=== PATIENT | male | born 1955 | race American Indian/Alaskan Native ===

== ENCOUNTER 2018-10-02 21:12 | Inpatient (IN) | payer MEDICAID, MEDICARE, OTHER ==
[2018-10-02] MEDS ORDERED: ATROVENT IH ONE (21:53)
[2018-10-02] MEDS ORDERED: SOLU-Medrol IV ONE (21:53)
[2018-10-02] MEDS ORDERED: PROVENTIL IH ONE (21:53)
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
[2018-10-02 22:33] LABS: Basophils # (Auto) 0.1 K/mm3 (0.0-0.1); Basophils % (Auto) 0.8 % (0.0-1.8); Eosinophils # (Auto) 0.1 K/mm3 (0.0-0.4); Eosinophils % (Auto) 1.5 % (0.0-4.3); Hematocrit 46.8 % (35.5-45.6); Hemoglobin 16.1 gm/dl (11.8-15.2); Lymphocytes # (Auto) 2.6 K/mm3 (1.2-5.4); Lymphocytes % (Auto) 35.9 % (13.4-35.0); Mean Corpuscular HGB Conc 35 % (32-34); Mean Corpuscular Volume 96 fl (84-94); Monocytes # (Auto) 0.3 K/mm3 (0.0-0.8); Monocytes % (Auto) 4.4 % (0.0-7.3); Platelet Count 294 K/mm3 (140-440); Red Blood Count 4.86 M/mm3 (3.65-5.03); Red Cell Distribution Width 13.5 % (13.2-15.2)
--- NOTE | 2018-10-02 22:33 | XRay Report ---
FINAL REPORT EXAM: XR CHEST 1V AP HISTORY: chest pain, cough TECHNIQUE: upright single view chest PRIORS: None. FINDINGS: Cardiac and mediastinal contours are unremarkable. No focal pulmonary infiltrate is identified. No pleural fluid collection seen. Pulmonary vasculature is unremarkable. IMPRESSION: Negative single-view chest
[2018-10-02 22:43] LABS: INR 0.98 (0.87-1.13)
[2018-10-02 22:44] LABS: Partial Thromboplastin Time 26.5 Sec. (24.2-36.6)
[2018-10-02 22:49] LABS: BUN/Creatinine Ratio 12; Blood Urea Nitrogen 11 mg/dL (9-20); Calcium 8.9 mg/dL (8.4-10.2); Hemolysis Index 12
[2018-10-02] MEDS ORDERED: NACL 0.9% 500 ML 500 ML IV ONE (23:17)
[2018-10-03] MEDS ORDERED: NACL 0.9% 1000 ML 1,000 ML IV ONE (00:58)
[2018-10-03] MEDS ORDERED: NACL 0.9% 1000 ML 1,000 ML ONE (01:02)
[2018-10-03] MEDS ORDERED: ASPIRIN PO ONE (02:28)
[2018-10-03] MEDS ORDERED: ZOFRAN IV PRN ×2 (02:50→06:30)
[2018-10-03] MEDS ORDERED: TYLENOL PO PRN (02:50)
[2018-10-03] MEDS ORDERED: MORPHINE IV PRN (02:50)
[2018-10-03] MEDS ORDERED: SODIUM CHLORIDE FLUSH SYRINGE 10 ML IV PRN ×2 (02:50)
[2018-10-03] MEDS ORDERED: NITROSTAT SL PRN (02:55)
--- NOTE | 2018-10-03 03:03 | History and Physical Report ---
<VICTOR HUGO LANG - Last Filed: 10/03/18 05:53> History of Present Illness Date of examination: 10/03/18 Date of admission: 10/03/1919 Chief complaint: Chest pain and hypotension History of present illness: Patient 63-year-old male with history of COPD , cigarette smoking disorder, hypotension who presents to the ER with complaints of chest pain for 3 days. Patient states that he has been coughing on and off for 2 weeks, it is a prod uctive cough that is worse in the morning, the cough is now associated with chest pain. Patient reports that the chest pain is located in the left substernal area, radiating to his left hand, he states that he experiences numbness and tingling and bluish discoloration of his left hand. Patient states that the left hand numbness worsen when ist cold. Patient also reports a history of tobacco use for several years he currently smokes about 12 cigarettes a day. Patient also reports a left-sided headache, denies visual changes, denies shortness of breath, denies diaphoresis, denies nausea or vomiting, denies fever, denies chills. Patient reports episodes of diarrhea/vomiting on and off for several months. Patient states the diarrhea has been ongoing for several months with no change. In the ER patient had a chest x-ray that was normal, his blood pressure is 74/39, improved to 96/55. Pt's EKG was normal, cardiac enzymes were negative. Patient is admitted for COPD exacerbation, chest pain and hypotension. Medications and Allergies Allergies Allergy/AdvReac Type Severity Reaction Status Date / Time No Known Allergies Allergy Verified 08/25/13 11:20 Home Medications Medication Instructions Recorded Confirmed Last Taken Type Fluticasone/Salmeterol [Advair 1 each IH BID #1 blst.w.dev 10/05/18 Unknown Rx 250-50 Diskus] Prednisone [predniSONE 10 mg 10 mg PO .TAPER #1 tab.ds.pk 10/05/18 Unknown Rx (6-Day Pack, 21 Tabs)] RX: ALBUTEROL Inhaler(NF) 2 puff IH QID PRN #1 inha 10/05/18 Unknown Rx [VENTOLIN Inhaler(NF)] RX: Famotidine [Pepcid] 20 mg PO BID #30 tablet 10/05/18 Unknown Rx RX: Nicotine [Habitrol] 14 mg TD DAILY #30 patch 10/05/18 Unknown Rx RX: levoFLOXacin [Levaquin TAB] 750 mg PO Q24HR@2200 #5 tablet 10/05/18 Unknown Rx Active Meds: Active Medications Acetaminophen (Tylenol) 650 mg PO Q4H PRN PRN Reason: Pain MILD(1-3)/Fever >100.5/RUIZ Aspirin (Ecotrin) 325 mg PO QDAY BRE Morphine Sulfate (Morphine) 2 mg IV Q4H PRN PRN Reason: Pain, Moderate (4-6) Ondansetron HCl (Zofran) 4 mg IV Q8H PRN PRN Reason: Nausea And Vomiting Sodium Chloride (Sodium Chloride Flush Syringe 10 Ml) 10 ml IV BID BRE Sodium Chloride (Sodium Chloride Flush Syringe 10 Ml) 10 ml IV PRN PRN PRN Reason: LINE FLUSH Sodium Chloride (Sodium Chloride Flush Syringe 10 Ml) 10 ml IV PRN PRN PRN Reason: LINE FLUSH Exam - Constitutional Vitals: Temp Pulse Resp BP Pulse Ox 98.7 F 77 17 106/62 95 10/02/18 21:50 10/03/18 02:00 10/03/18 02:00 10/03/18 02:00 10/03/18 02:00 General appearance: Present: no acute distress - EENT Eyes: Present: PERRL, EOM intact ENT: hearing intact, clear oral mucosa - Neck Neck: Present: supple, normal ROM - Respiratory Respiratory effort: normal Respiratory: bilateral: diminished - Cardiovascular Rhythm: regular Heart Sounds: Present: gallop - Extremities Extremities: no ischemia Peripheral Pulses: within normal limits - Abdominal General gastrointestinal: Present: soft, non-tender Male genitourinary: Present: deferred - Rectal Rectal Exam: deferred - Integumentary Integumentary: Present: warm, dry - Musculoskeletal Musculoskeletal: strength equal bilaterally - Psychiatric Psychiatric: appropriate mood/affect, cooperative - Neurologic Neurologic: moves all extremities Results - Labs CBC & Chem 7: 10/03/18 03:20 10/03/18 03:20 Labs: Laboratory Last Values WBC 7.1 K/mm3 (4.5-11.0) 10/02/18 22:07 RBC 4.86 M/mm3 (3.65-5.03) 10/02/18 22:07 Hgb 16.1 gm/dl (11.8-15.2) H 10/02/18 22:07 Hct 46.8 % (35.5-45.6) H 10/02/18 22:07 MCV 96 fl (84-94) H 10/02/18 22:07 MCH 33 pg (28-32) H 10/02/18 22:07 MCHC 35 % (32-34) H 10/02/18 22:07 RDW 13.5 % (13.2-15.2) 10/02/18 22:07 Plt Count 294 K/mm3 (140-440) 10/02/18 22:07 Lymph % (Auto) 35.9 % (13.4-35.0) H 10/02/18 22:07 [place] % (Auto) 4.4 % (0.0-7.3) 10/02/18 22:07 Eos % (Auto) 1.5 % (0.0-4.3) 10/02/18 22:07 Baso % (Auto) 0.8 % (0.0-1.8) 10/02/18 22:07 Lymph # 2.6 K/mm3 (1.2-5.4) 10/02/18 22:07 [place] # 0.3 K/mm3 (0.0-0.8) 10/02/18 22:07 Eos # 0.1 K/mm3 (0.0-0.4) 10/02/18 22:07 Baso # 0.1 K/mm3 (0.0-0.1) 10/02/18 22:07 Seg Neutrophils % 57.4 % (40.0-70.0) 10/02/18 22:07 Seg Neutrophils # 4.1 K/mm3 (1.8-7.7) 10/02/18 22:07 PT 13.4 Sec. (12.2-14.9) 10/02/18 22:07 INR 0.98 (0.87-1.13) 10/02/18 22:07 APTT 26.5 Sec. (24.2-36.6) 10/02/18 22:07 D-Dimer 196.69 ng/mlDDU (0-234) 10/02/18 22:07 Sodium 141 mmol/L (137-145) 10/02/18 22:07 Potassium 4.1 mmol/L (3.6-5.0) 10/02/18 22:07 Chloride 103.9 mmol/L (98-107) 10/02/18 22:07 Carbon Dioxide 20 mmol/L (22-30) L 10/02/18 22:07 Anion Gap 21 mmol/L 10/02/18 22:07 BUN 11 mg/dL (9-20) 10/02/18 22:07 Creatinine 0.9 mg/dL (0.8-1.5) 10/02/18 22:07 Estimated GFR > 60 ml/min 10/02/18 22:07 BUN/Creatinine Ratio 12 % 10/02/18 22:07 Glucose 91 mg/dL (75-100) 10/02/18 22:07 Lactic Acid 4.20 mmol/L (0.7-2.0) H* 10/03/18 02:04 Calcium 8.9 mg/dL (8.4-10.2) 10/02/18 22:07 Troponin T < 0.010 ng/mL (0.00-0.029) 10/03/18 02:04 NT-Pro-B Natriuret Pep 2388 pg/mL (0-900) H 10/02/18 22:07 Assessment and Plan Assessment and plan: 1. Atypical chest pain, rule out ACS 2. Hypotension 3. COPD exacerbation 4. Cigarette smoking disorder 5. Chronic diarrhea etiology unclear Plan: Patient is admitted for chest pain/ Continue cardiac enzymes every 6 hours 2 Monitor telemetry /vital signs Smoking cessation Monitor BP Stress test in a.m. COPD exacerbation protocol Solu-Medrol IV 60 mg every 6 hours Patient has no home meds Plan discussed with patient, voiced understanding Patient's condition and plan of care discussed with Dr. Cabrera Advance Directives: Yes VTE prophylaxis?: Chemical Plan of care discussed with patient/family: Yes <YEVGENIY CABRERA - Last Filed: 10/13/18 06:47> History of Present Illness Date of admission: 10/03/18 04:15 Medications and Allergies Active Meds: Active Medications Acetaminophen (Tylenol) 650 mg PO Q4H PRN PRN Reason: Pain MILD(1-3)/Fever >100.5/RIUZ Aspirin (Ecotrin) 325 mg PO QDAY BRE Famotidine (Pepcid) 20 mg IV BID BRE Last Admin: 10/03/18 04:41 Dose: 20 mg Documented by: Sodium Chloride (Nacl 0.9% 1000 Ml) 1,000 mls @ 125 mls/hr IV DIRECT BRE Last Admin: 10/03/18 04:25 Dose: 125 mls/hr Documented by: Piperacillin Sod/Tazobactam Sod (Zosyn/Ns 4.5gm/100ml) 4.5 gm in 100 mls @ 200 mls/hr IV Q8H BRE; Protocol Last Admin: 10/03/18 04:25 Dose: 200 mls/hr Documented by: Morphine Sulfate (Morphine) 2 mg IV Q4H PRN PRN Reason: Pain, Moderate (4-6) Ondansetron HCl (Zofran) 4 mg IV Q8H PRN PRN Reason: Nausea And Vomiting Sodium Chloride (Sodium Chloride Flush Syringe 10 Ml) 10 ml IV BID BRE Sodium Chloride (Sodium Chloride Flush Syringe 10 Ml) 10 ml IV PRN PRN PRN Reason: LINE FLUSH Sodium Chloride (Sodium Chloride Flush Syringe 10 Ml) 10 ml IV PRN PRN PRN Reason: LINE FLUSH Exam - Constitutional Vitals: Temp Pulse Resp BP Pulse Ox 98.7 F 81 16 119/64 97 10/02/18 21:50 10/03/18 06:00 10/03/18 06:00 10/03/18 06:00 10/03/18 06:00 Results - Labs CBC & Chem 7: 10/03/18 03:20 10/03/18 03:20 Labs: Laboratory Last Values WBC 6.4 K/mm3 (4.5-11.0) 10/03/18 03:20 RBC 4.69 M/mm3 (3.65-5.03) 10/03/18 03:20 Hgb 15.0 gm/dl (11.8-15.2) 10/03/18 03:20 Hct 45.3 % (35.5-45.6) 10/03/18 03:20 MCV 97 fl (84-94) H 10/03/18 03:20 MCH 32 pg (28-32) 10/03/18 03:20 MCHC 33 % (32-34) 10/03/18 03:20 RDW 13.6 % (13.2-15.2) 10/03/18 03:20 Plt Count 261 K/mm3 (140-440) 10/03/18 03:20 Lymph % (Auto) 9.4 % (13.4-35.0) L 10/03/18 03:20 [place] % (Auto) 1.0 % (0.0-7.3) 10/03/18 03:20 Eos % (Auto) 0.1 % (0.0-4.3) 10/03/18 03:20 Baso % (Auto) 0.3 % (0.0-1.8) 10/03/18 03:20 Lymph # 0.6 K/mm3 (1.2-5.4) L 10/03/18 03:20 [place] # 0.1 K/mm3 (0.0-0.8) 10/03/18 03:20 Eos # 0.0 K/mm3 (0.0-0.4) 10/03/18 03:20 Baso # 0.0 K/mm3 (0.0-0.1) 10/03/18 03:20 Seg Neutrophils % 89.2 % (40.0-70.0) H 10/03/18 03:20 Seg Neutrophils # 5.7 K/mm3 (1.8-7.7) 10/03/18 03:20 PT 13.4 Sec. (12.2-14.9) 10/02/18 22:07 INR 0.98 (0.87-1.13) 10/02/18 22:07 APTT 26.5 Sec. (24.2-36.6) 10/02/18 22:07 D-Dimer 196.69 ng/mlDDU (0-234) 10/02/18 22:07 Sodium 141 mmol/L (137-145) 10/03/18 03:20 Potassium 4.3 mmol/L (3.6-5.0) 10/03/18 03:20 Chloride 105.7 mmol/L (98-107) 10/03/18 03:20 Carbon Dioxide 21 mmol/L (22-30) L 10/03/18 03:20 Anion Gap 19 mmol/L 10/03/18 03:20 BUN 12 mg/dL (9-20) 10/03/18 03:20 Creatinine 0.9 mg/dL (0.8-1.5) 10/03/18 03:20 Estimated GFR > 60 ml/min 10/03/18 03:20 BUN/Creatinine Ratio 13 % 10/03/18 03:20 Glucose 112 mg/dL (75-100) H 10/03/18 03:20 Hemoglobin A1c 5.6 % (4-6) 10/03/18 03:20 Lactic Acid 4.50 mmol/L (0.7-2.0) H* 10/03/18 03:20 Calcium 7.9 mg/dL (8.4-10.2) L 10/03/18 03:20 Troponin T < 0.010 ng/mL (0.00-0.029) 10/03/18 02:04 NT-Pro-B Natriuret Pep 2388 pg/mL (0-900) H 10/02/18 22:07 Triglycerides 217 mg/dL (2-149) H 10/03/18 03:20 Cholesterol 119 mg/dL (50-199) 10/03/18 03:20 LDL Cholesterol Direct 49 mg/dL (50-130) L 10/03/18 03:20 HDL Cholesterol 48 mg/dL (40-59) 10/03/18 03:20 Cholesterol/HDL Ratio 2.47 % 10/03/18 03:20 Urine Color Yellow (Yellow) 10/03/18 04:23 Urine Turbidity Clear (Clear) 10/03/18 04:23 Urine pH 5.0 (5.0-7.0) 10/03/18 04:23 Ur Specific [place] 1.008 (1.003-1.030) 10/03/18 04:23 Urine Protein <15 mg/dl mg/dL (Negative) 10/03/18 04:23 Urine Glucose (UA) Neg mg/dL (Negative) 10/03/18 04:23 Urine Ketones Tr mg/dL (Negative) 10/03/18 04:23 Urine Blood Neg (Negative) 10/03/18 04:23 Urine Nitrite Neg (Negative) 10/03/18 04:23 Urine Bilirubin Neg (Negative) 10/03/18 04:23 Urine Urobilinogen < 2.0 mg/dL (<2.0) 10/03/18 04:23 Ur Leukocyte Esterase Neg (Negative) 10/03/18 04:23 Urine WBC (Auto) < 1.0 /HPF (0.0-6.0) 10/03/18 04:23 Urine RBC (Auto) 2.0 /HPF (0.0-6.0) 10/03/18 04:23 Urine Mucus Few /HPF 10/03/18 04:23 Assessment and Plan Assessment and plan: Patient seen and examined with nurse practitioner. 63-year-old man with history of diabetes, COPD complains ofchest pain she describes as sharp and intermittent to 30 minutes and associated shortness of breath. In the emergency room he was found to be hypotensive which he responded to IV fluid. His lactate is elevated, no signs of infection, will start empiric IV zosyn, IV fluid, obtain stress test
[2018-10-03 03:49] LABS: Basophils % (Auto) 0.3 % (0.0-1.8); Eosinophils % (Auto) 0.1 % (0.0-4.3); Hematocrit 45.3 % (35.5-45.6); Lymphocytes # (Auto) 0.6 K/mm3 (1.2-5.4); Lymphocytes % (Auto) 9.4 % (13.4-35.0); Mean Corpuscular HGB Conc 33 % (32-34); Mean Corpuscular Volume 97 fl (84-94); Monocytes # (Auto) 0.1 K/mm3 (0.0-0.8); Platelet Count 261 K/mm3 (140-440); Red Blood Count 4.69 M/mm3 (3.65-5.03); Red Cell Distribution Width 13.6 % (13.2-15.2)
[2018-10-03] MEDS ORDERED: NACL 0.9% 1000 ML 1,000 ML IV SCH ×2 (04:00→05:00)
[2018-10-03] MEDS ORDERED: ZOSYN/NS 4.5GM/100ML 4.5 GM/100 ML VIAL IV SCH (04:00)
[2018-10-03 04:03] LABS: BUN/Creatinine Ratio 13; Blood Urea Nitrogen 12 mg/dL (9-20); Calcium 7.9 mg/dL (8.4-10.2); Hemolysis Index 11
[2018-10-03] MEDS: NACL 0.9% 1000 ML 1,000 ML IV SCH ×2 (04:25→15:08)
[2018-10-03] MEDS: ZOSYN/NS 4.5GM/100ML 4.5 GM/100 ML VIAL IV SCH ×3 (04:25→21:44)
[2018-10-03 04:31] LABS: Chol/HDL Ratio 2.47 %
[2018-10-03] MEDS: PEPCID IV SCH ×3 (04:41→21:47)
[2018-10-03 04:54] LABS: Bilirubin,Urine NEG (Negative); Blood,Urine NEG (Negative); Color,Urine Yellow (Yellow); Mucus,Urine FEW /HPF; Protein,Urine <15 mg/dL mg/dL (Negative); Urobilinogen,Urine < 2.0 mg/dL (<2.0); WBC,Urine < 1.0 /HPF (0.0-6.0)
[2018-10-03] MEDS ORDERED: REGLAN IV PRN (06:30)
[2018-10-03] MEDS ORDERED: PROVENTIL IH PRN (06:30)
[2018-10-03] MEDS ORDERED: LEVAQUIN 750MG/150ML 750 MG/150 ML BAG IV ONE ×2 (06:35→20:00)
[2018-10-03] MEDS ORDERED: PEPCID IV SCH (10:00)
--- NOTE | 2018-10-03 10:26 | Progress Note ---
Assessment and Plan Assessment and plan: --Atypical chest pain, rule out ACS Stress test negative, probably noncardiac chest pain, secondary to GERD --GERD; advise Protonix, supportive care -- Hypotension; present on admission, resolved Blood pressures reasonable level closely monitor --Acute on chronic hypoxic respiratory failure; Patient has home oxygen, secondary to COPD exacerbation Oxygen titrate to O2 sats more than 90%, nebulizers, IV steroids --Acute exacerbation of COPD; nebulizers, tapering dose of IV steroids, IV antibiotics Inhalation steroids, pulmonary consult if needed --Ongoing tobacco use; smoking cessation advised, nicotine patch as needed --Chronic diarrhea etiology unclear; mild improvement, patient may need to see GI As outpatient if no improvement upon discharge --DVT prophylaxis; Lovenox close closely monitor the patient had chest management as needed Possible discharge in 1-2 days if stable Plan of care is reviewed with the patient and his nurse We will transfer patient to medical floor History Interval history: Patient seen and examined medical records reviewed Complaints of shortness of breath and wheezing Admitted with chest pain, stress test negative Alert awake oriented 3 Mild distress Vital signs noted Hospitalist Physical - Constitutional Vitals: Temp Pulse Resp BP Pulse Ox 98.9 F 89 21 114/66 99 10/03/18 07:37 10/03/18 07:37 10/03/18 07:37 10/03/18 07:37 10/03/18 07:37 General appearance: Present: no acute distress, well-nourished - EENT Eyes: Present: PERRL, EOM intact - Neck Neck: Present: supple, normal ROM - Respiratory Respiratory effort: normal Respiratory: bilateral: diminished, wheezing, negative: rales, rhonchi - Cardiovascular Rhythm: regular Heart Sounds: Present: S1 & S2 - Extremities Extremities: no ischemia, No edema Peripheral Pulses: within normal limits - Abdominal General gastrointestinal: soft, non-tender, non-distended, normal bowel sounds - Integumentary Integumentary: Present: clear, warm - Psychiatric Psychiatric: appropriate mood/affect, cooperative - Neurologic Neurologic: CNII-XII intact, moves all extremities Results - Labs CBC & Chem 7: 10/03/18 03:20 10/03/18 03:20 Labs: Laboratory Last Values WBC 6.4 K/mm3 (4.5-11.0) 10/03/18 03:20 RBC 4.69 M/mm3 (3.65-5.03) 10/03/18 03:20 Hgb 15.0 gm/dl (11.8-15.2) 10/03/18 03:20 Hct 45.3 % (35.5-45.6) 10/03/18 03:20 MCV 97 fl (84-94) H 10/03/18 03:20 MCH 32 pg (28-32) 10/03/18 03:20 MCHC 33 % (32-34) 10/03/18 03:20 RDW 13.6 % (13.2-15.2) 10/03/18 03:20 Plt Count 261 K/mm3 (140-440) 10/03/18 03:20 Lymph % (Auto) 9.4 % (13.4-35.0) L 10/03/18 03:20 [place] % (Auto) 1.0 % (0.0-7.3) 10/03/18 03:20 Eos % (Auto) 0.1 % (0.0-4.3) 10/03/18 03:20 Baso % (Auto) 0.3 % (0.0-1.8) 10/03/18 03:20 Lymph # 0.6 K/mm3 (1.2-5.4) L 10/03/18 03:20 [place] # 0.1 K/mm3 (0.0-0.8) 10/03/18 03:20 Eos # 0.0 K/mm3 (0.0-0.4) 10/03/18 03:20 Baso # 0.0 K/mm3 (0.0-0.1) 10/03/18 03:20 Seg Neutrophils % 89.2 % (40.0-70.0) H 10/03/18 03:20 Seg Neutrophils # 5.7 K/mm3 (1.8-7.7) 10/03/18 03:20 PT 13.4 Sec. (12.2-14.9) 10/02/18 22:07 INR 0.98 (0.87-1.13) 10/02/18 22:07 APTT 26.5 Sec. (24.2-36.6) 10/02/18 22:07 D-Dimer 196.69 ng/mlDDU (0-234) 10/02/18 22:07 Sodium 141 mmol/L (137-145) 10/03/18 03:20 Potassium 4.3 mmol/L (3.6-5.0) 10/03/18 03:20 Chloride 105.7 mmol/L (98-107) 10/03/18 03:20 Carbon Dioxide 21 mmol/L (22-30) L 10/03/18 03:20 Anion Gap 19 mmol/L 10/03/18 03:20 BUN 12 mg/dL (9-20) 10/03/18 03:20 Creatinine 0.9 mg/dL (0.8-1.5) 10/03/18 03:20 Estimated GFR > 60 ml/min 10/03/18 03:20 BUN/Creatinine Ratio 13 % 10/03/18 03:20 Glucose 112 mg/dL (75-100) H 10/03/18 03:20 Hemoglobin A1c 5.6 % (4-6) 10/03/18 03:20 Lactic Acid 1.60 mmol/L (0.7-2.0) 10/03/18 07:43 Calcium 7.9 mg/dL (8.4-10.2) L 10/03/18 03:20 Troponin T < 0.010 ng/mL (0.00-0.029) 10/03/18 02:04 NT-Pro-B Natriuret Pep 2388 pg/mL (0-900) H 10/02/18 22:07 Triglycerides 217 mg/dL (2-149) H 10/03/18 03:20 Cholesterol 119 mg/dL (50-199) 10/03/18 03:20 LDL Cholesterol Direct 49 mg/dL (50-130) L 10/03/18 03:20 HDL Cholesterol 48 mg/dL (40-59) 10/03/18 03:20 Cholesterol/HDL Ratio 2.47 % 10/03/18 03:20 Urine Color Yellow (Yellow) 10/03/18 04:23 Urine Turbidity Clear (Clear) 10/03/18 04:23 Urine pH 5.0 (5.0-7.0) 10/03/18 04:23 Ur Specific [place] 1.008 (1.003-1.030) 10/03/18 04:23 Urine Protein <15 mg/dl mg/dL (Negative) 10/03/18 04:23 Urine Glucose (UA) Neg mg/dL (Negative) 10/03/18 04:23 Urine Ketones Tr mg/dL (Negative) 10/03/18 04:23 Urine Blood Neg (Negative) 10/03/18 04:23 Urine Nitrite Neg (Negative) 10/03/18 04:23 Urine Bilirubin Neg (Negative) 10/03/18 04:23 Urine Urobilinogen < 2.0 mg/dL (<2.0) 10/03/18 04:23 Ur Leukocyte Esterase Neg (Negative) 10/03/18 04:23 Urine WBC (Auto) < 1.0 /HPF (0.0-6.0) 10/03/18 04:23 Urine RBC (Auto) 2.0 /HPF (0.0-6.0) 10/03/18 04:23 Urine Mucus Few /HPF 10/03/18 04:23
[2018-10-03] MEDS: PULMICORT IH SCH ×2 (11:15→19:45)
[2018-10-03] MEDS ORDERED: LEXISCAN IV ONE ×2 (11:56→12:55)
[2018-10-03] MEDS: SOLU-Medrol IV SCH ×2 (15:04→21:45)
[2018-10-03] MEDS: SODIUM CHLORIDE FLUSH SYRINGE 10 ML IV SCH ×2 (15:05→22:14)
[2018-10-04] MEDS: NACL 0.9% 1000 ML 1,000 ML IV SCH ×2 (02:39→09:49)
[2018-10-04] MEDS: ZOSYN/NS 4.5GM/100ML 4.5 GM/100 ML VIAL IV SCH (04:06)
[2018-10-04] MEDS: SOLU-Medrol IV SCH ×3 (06:17→22:35)
[2018-10-04] MEDS: SODIUM CHLORIDE FLUSH SYRINGE 10 ML IV SCH ×2 (09:49→22:35)
[2018-10-04] MEDS: PEPCID IV SCH (09:50)
[2018-10-04] MEDS: ECOTRIN PO SCH (09:50)
[2018-10-04] MEDS: PULMICORT IH SCH ×2 (10:01→19:00)
[2018-10-04] MEDS ORDERED: LASIX IV ONE (11:00)
[2018-10-04] MEDS ORDERED: PNEUMOVAX 23 IM ONE (12:00)
[2018-10-04] MEDS ORDERED: AFLURIA QUAD 2018-2019 SYRINGE IM ONE (12:00)
--- NOTE | 2018-10-04 12:00 | Progress Note ---
Assessment and Plan Assessment and plan: --Acute on chronic hypoxic respiratory failure; Patient has home oxygen, secondary to COPD exacerbation Oxygen titrate to O2 sats more than 90%, nebulizers, tapering doses IV steroids And IV Lasix, DC IV fluids --Acute exacerbation of COPD; nebulizers, tapering dose of IV steroids, Change to oral antibiotics, Inhalation steroids, --Atypical chest pain, rule out ACS Stress test negative, probably noncardiac chest pain, secondary to GERD --GERD; advise Protonix, supportive care -- Hypotension; present on admission, resolved Blood pressures reasonable level closely monitor --Ongoing tobacco use; smoking cessation advised, nicotine patch as needed --Chronic diarrhea etiology unclear; mild improvement, patient may need to see GI As outpatient if no improvement upon discharge --DVT prophylaxis; Lovenox Plan of care is reviewed with the patient and his nurse Ambulate as tolerated Patient already has home oxygen Possible discharge in 1-2 days stable History Interval history: Patient seen and examined medical records reviewed No new events reported by the nursing staff Patient continues to have shortness of breath and chest congestion Alert awake oriented 3 in mild distress Vital signs noted Hospitalist Physical - Constitutional Vitals: Temp Pulse Resp BP Pulse Ox 98.1 F 79 18 129/74 99 10/04/18 06:24 10/04/18 10:08 10/04/18 10:08 10/04/18 06:24 10/04/18 09:58 General appearance: Present: mild distress, well-nourished - EENT Eyes: Present: PERRL, EOM intact - Neck Neck: Present: supple, normal ROM - Respiratory Respiratory effort: normal Respiratory: bilateral: diminished, rales, wheezing, negative: rhonchi - Cardiovascular Rhythm: regular Heart Sounds: Present: S1 & S2 - Extremities Extremities: no ischemia, No edema - Abdominal General gastrointestinal: soft, non-tender, non-distended, normal bowel sounds - Integumentary Integumentary: Present: clear, warm - Psychiatric Psychiatric: appropriate mood/affect, cooperative - Neurologic Neurologic: CNII-XII intact, moves all extremities Results - Labs CBC & Chem 7: 10/03/18 03:20 10/03/18 03:20 Labs: Laboratory Last Values WBC 6.4 K/mm3 (4.5-11.0) 10/03/18 03:20 RBC 4.69 M/mm3 (3.65-5.03) 10/03/18 03:20 Hgb 15.0 gm/dl (11.8-15.2) 10/03/18 03:20 Hct 45.3 % (35.5-45.6) 10/03/18 03:20 MCV 97 fl (84-94) H 10/03/18 03:20 MCH 32 pg (28-32) 10/03/18 03:20 MCHC 33 % (32-34) 10/03/18 03:20 RDW 13.6 % (13.2-15.2) 10/03/18 03:20 Plt Count 261 K/mm3 (140-440) 10/03/18 03:20 Lymph % (Auto) 9.4 % (13.4-35.0) L 10/03/18 03:20 Crane % (Auto) 1.0 % (0.0-7.3) 10/03/18 03:20 Eos % (Auto) 0.1 % (0.0-4.3) 10/03/18 03:20 Baso % (Auto) 0.3 % (0.0-1.8) 10/03/18 03:20 Lymph # 0.6 K/mm3 (1.2-5.4) L 10/03/18 03:20 Crane # 0.1 K/mm3 (0.0-0.8) 10/03/18 03:20 Eos # 0.0 K/mm3 (0.0-0.4) 10/03/18 03:20 Baso # 0.0 K/mm3 (0.0-0.1) 10/03/18 03:20 Seg Neutrophils % 89.2 % (40.0-70.0) H 10/03/18 03:20 Seg Neutrophils # 5.7 K/mm3 (1.8-7.7) 10/03/18 03:20 PT 13.4 Sec. (12.2-14.9) 10/02/18 22:07 INR 0.98 (0.87-1.13) 10/02/18 22:07 APTT 26.5 Sec. (24.2-36.6) 10/02/18 22:07 D-Dimer 196.69 ng/mlDDU (0-234) 10/02/18 22:07 Sodium 141 mmol/L (137-145) 10/03/18 03:20 Potassium 4.3 mmol/L (3.6-5.0) 10/03/18 03:20 Chloride 105.7 mmol/L (98-107) 10/03/18 03:20 Carbon Dioxide 21 mmol/L (22-30) L 10/03/18 03:20 Anion Gap 19 mmol/L 10/03/18 03:20 BUN 12 mg/dL (9-20) 10/03/18 03:20 Creatinine 0.9 mg/dL (0.8-1.5) 10/03/18 03:20 Estimated GFR > 60 ml/min 10/03/18 03:20 BUN/Creatinine Ratio 13 % 10/03/18 03:20 Glucose 112 mg/dL (75-100) H 10/03/18 03:20 Hemoglobin A1c 5.6 % (4-6) 10/03/18 03:20 Lactic Acid 1.60 mmol/L (0.7-2.0) 10/03/18 07:43 Calcium 7.9 mg/dL (8.4-10.2) L 10/03/18 03:20 Troponin T < 0.010 ng/mL (0.00-0.029) 10/03/18 17:47 NT-Pro-B Natriuret Pep 2388 pg/mL (0-900) H 10/02/18 22:07 Triglycerides 217 mg/dL (2-149) H 10/03/18 03:20 Cholesterol 119 mg/dL (50-199) 10/03/18 03:20 LDL Cholesterol Direct 49 mg/dL (50-130) L 10/03/18 03:20 HDL Cholesterol 48 mg/dL (40-59) 10/03/18 03:20 Cholesterol/HDL Ratio 2.47 % 10/03/18 03:20 Urine Color Yellow (Yellow) 10/03/18 04:23 Urine Turbidity Clear (Clear) 10/03/18 04:23 Urine pH 5.0 (5.0-7.0) 10/03/18 04:23 Ur Specific [place] 1.008 (1.003-1.030) 10/03/18 04:23 Urine Protein <15 mg/dl mg/dL (Negative) 10/03/18 04:23 Urine Glucose (UA) Neg mg/dL (Negative) 10/03/18 04:23 Urine Ketones Tr mg/dL (Negative) 10/03/18 04:23 Urine Blood Neg (Negative) 10/03/18 04:23 Urine Nitrite Neg (Negative) 10/03/18 04:23 Urine Bilirubin Neg (Negative) 10/03/18 04:23 Urine Urobilinogen < 2.0 mg/dL (<2.0) 10/03/18 04:23 Ur Leukocyte Esterase Neg (Negative) 10/03/18 04:23 Urine WBC (Auto) < 1.0 /HPF (0.0-6.0) 10/03/18 04:23 Urine RBC (Auto) 2.0 /HPF (0.0-6.0) 10/03/18 04:23 Urine Mucus Few /HPF 10/03/18 04:23
[2018-10-04] MEDS ORDERED: LEVAQUIN PO SCH (22:00)
[2018-10-04] MEDS: PEPCID PO SCH (22:36)
[2018-10-05] MEDS: SOLU-Medrol IV SCH ×2 (05:58→14:53)
[2018-10-05] MEDS: PULMICORT IH SCH (09:00)
--- NOTE | 2018-10-05 09:21 | Treadmill Report ---
INDICATION: Chest pain. ORDERING PHYSICIAN: . FINDINGS: There is no scintigraphic evidence of myocardial ischemia. The left ventricle is normal in size and systolic function. The left ventricular ejection fraction is measured at 66%. Normal wall motion and wall thickening is noted on gated imaging. CONCLUSION: Normal perfusion scan. JOB# [id number] AMINA/ALEKSEY
[2018-10-05] MEDS ORDERED: LASIX IV SCH (10:00)
[2018-10-05] MEDS: ECOTRIN PO SCH (10:14)
[2018-10-05] MEDS: PEPCID PO SCH (10:15)
[2018-10-05] MEDS: SODIUM CHLORIDE FLUSH SYRINGE 10 ML IV SCH (10:15)
[2018-10-05 12:57] VITALS: BP 118/65
--- NOTE | 2018-10-05 14:30 | Discharge Summary ---
Providers - Providers Date of Admission: 10/03/18 04:15 Date of discharge: 10/05/18 Attending physician: LIBRADO SHETH 10/03/18 Consult to Cardiac Rehabilitation [CONS] Routine Reason For Exam: Phase I Consult to Cardiac Rehabilitation [CONS] Routine Reason For Exam: Phase I Primary care physician: GILLIAN SWANN Hospitalization Reason for admission: chest pain/worsening shortness of breath Condition: Fair Pertinent studies: Chest x-ray; normal Echocardiogram; diastolic congestive heart failure, EF 80-85%, LVH Stress test; normal perfusion scan, EF 65% Hospital course: -Very pleasant 63-year-old male patient with significant history of COPD ongoing tobacco use hypertension was admitted through emergency room with chest pain and mild hypotension Patient was evaluated admitted to the hospital had extensive evaluation as mentioned above Echocardiogram consistent with diastolic congestive heart failure Stress test negative for ischemia Patient's medications optimized Today's comfortable no new complaints, Vital signs stable Physical examination unremarkable Hemodynamically and clinically stable for discharge Discharge diagnosis: -Acute on chronic hypoxic respiratory failure; Patient has home oxygen, secondary to COPD exacerbation Oxygen titrate to O2 sats more than 90%, nebulizers, tapering doses IV steroids And IV Lasix, DC IV fluids --Acute exacerbation of COPD; nebulizers, tapering dose of IV steroids, Change to oral antibiotics, Inhalation steroids, --Atypical chest pain, rule out ACS Stress test negative, probably noncardiac chest pain, secondary to GERD --GERD; advise Protonix, supportive care --Acute diastolic congestive heart failure; EF 80%, continue anti-failure medications -- Hypotension; present on admission, resolved Blood pressures reasonable level closely monitor --Ongoing tobacco use; smoking cessation advised, nicotine patch as needed --Chronic diarrhea etiology unclear; mild improvement, patient may need to see GI As outpatient if no improvement upon discharge Disposition: DC-01 TO HOME OR SELFCARE Time spent for discharge: 32 min Core Measure Documentation - Palliative Care Palliative Care/ Comfort Measures: Not Applicable - Core Measures Any of the following diagnoses?: none Exam - Constitutional Vitals: Temp Pulse Resp BP Pulse Ox 98.5 F 91 H 20 118/65 99 10/05/18 12:55 10/05/18 12:55 10/05/18 12:55 10/05/18 12:55 10/05/18 12:55 General appearance: Present: no acute distress, well-nourished - EENT Eyes: Present: PERRL, EOM intact - Neck Neck: Present: supple, normal ROM - Respiratory Respiratory effort: normal Respiratory: bilateral: diminished, negative: rales, rhonchi, wheezing - Cardiovascular Rhythm: regular Heart Sounds: Present: S1 & S2 - Extremities Extremities: no ischemia, No edema - Abdominal General gastrointestinal: Present: soft, non-tender, non-distended, normal bowel sounds - Integumentary Integumentary: Present: clear, warm - Musculoskeletal Musculoskeletal: strength equal bilaterally - Psychiatric Psychiatric: appropriate mood/affect, cooperative - Neurologic Neurologic: CNII-XII intact, moves all extremities Plan Activity: advance as tolerated Diet: low salt Special Instructions: smoking cessation Additional Instructions: Advice Smoking cessation. If you continue to have recurrent chest pain, contact M.D. go to emergency room Follow up with: GILLIAN SWANN MD [Primary Care Provider] - 3-5 Days ILIA PETERSON MD [Staff Physician] - 7 Days Prescriptions: ALBUTEROL Inhaler(NF) [VENTOLIN Inhaler(NF)] 2 puff IH QID PRN #1 inha PRN Reason: Shortness Of Breath Famotidine [Pepcid] 20 mg PO BID #30 tablet Fluticasone/Salmeterol [Advair 250-50 Diskus] 1 each IH BID #1 blst.w.dev levoFLOXacin [Levaquin TAB] 750 mg PO Q24HR@2200 #5 tablet Nicotine [Habitrol] 14 mg TD DAILY #30 patch Prednisone [predniSONE 10 mg (6-Day Pack, 21 Tabs)] 10 mg PO .TAPER #1 tab.ds.pk
== END 2018-10-05 19:43 | disposition home or self-care (01) | DRG 314 ==
LOC: ED 21:12 → 4A 10-03 04:15 → 3A 10-03 18:37
PROVIDERS: ADMIT Internal Medicine; ATTEND Internal Medicine
PROC: 3E0234Z Introduction of Serum, Toxoid and Vaccine into Muscle, Percutaneous Approach (ICD-10-PCS; principal; 2018-10-04)
DX: I95.9 Hypotension, unspecified (principal); J96.21 Acute and chronic respiratory failure with hypoxia; K21.9 Gastro-esophageal reflux disease without esophagitis; J44.1 Chronic obstructive pulmonary disease with (acute) exacerbation; K52.9 Noninfective gastroenteritis and colitis, unspecified; F17.210 Nicotine dependence, cigarettes, uncomplicated; I11.0 Hypertensive heart disease with heart failure; I50.9 Heart failure, unspecified; E11.9 Type 2 diabetes mellitus without complications; G89.29 Other chronic pain; M54.9 Dorsalgia, unspecified; Z99.81 Dependence on supplemental oxygen; Z71.6 Tobacco abuse counseling; Z72.89 Other problems related to lifestyle; Z23 Encounter for immunization
CPT/HCPCS: 36415; 71045; 78452; 80048; 80061; 81001; 82140; 83036; 83880; 84484; 85025; 85379; 85610; 85730; 87040; 90686; 90732; 93005; 93010; 93017; 93306; 94640; 96374; 99291; 99406; G0378; A9502; J1940; J1956; J2543; J2765; J2785; J2920; J2930; J7030; J7040